=== PATIENT | female | born 2000 | race Caucasian/White ===

== ENCOUNTER 2018-12-05 18:53 | Emergency (ER) | payer OTHER ==
[2018-12-05] MEDS ORDERED: Ondansetron PF 4 MG/2 ML Vial ONE (19:22)
[2018-12-05 19:40] LABS: Alcohol 290 mg/dL (Less than 10); Anion Gap 15 mmol/L (10-20); BUN (Urea Nitrogen) 12 mg/dL (7.0-18.7); Calc. Creatinine Clearance 0 mL/min (70-130); Calcium 7.8 mg/dL (7.8-10.44); Carbon Dioxide 19 mmol/L (22-29); Chloride 108 mmol/L (98-107); Estimated GFR-MDRD 90; Glucose 89 mg/dL (70-105); Potassium 3.8 mmol/L (3.5-5.1)
[2018-12-05 19:41] LABS: #Basophils 0.1 thou/uL (0.0-0.2); #Lymphocytes 1.2 thou/uL (1.20-3.40); #Monocytes 0.2 thou/uL (0.11-0.59); #Neutrophils 3.3 thou/uL (1.40-6.50); %Basophils 1.1 % (0.0-1.0); %Eosinophils 0.4 % (0.0-10.0); %Lymphocytes 25.8 % (28.0-48.0); %Monocytes 4.1 % (0.0-4.0); %Neutrophils 68.7 % (31.0-61.0); Hemoglobin 11.4 g/dL (12.0-16.0); Mean Corpuscular HGB CONC 32.8 g/dL (32.0-36.0); Mean Corpuscular Hemoglobin 29.8 pg (25.0-35.0); Mean Corpuscular Volume 90.8 fL (78.0-98.0); Mean Platelet Volume 7.8 fL (7.4-10.4); Platelet Count 157 thou/uL (130-400); RBC Distribution Width 11.9 % (11.5-14.5); Red Blood Cell (RBC) Count 3.83 mill/uL (4.00-5.20); White Blood Cell (WBC) Count 4.8 thou/uL (4.8-10.8)
[2018-12-05 19:43] LABS: Sodium 138 mmol/L (136-145)
== END 2018-12-05 20:45 | disposition home or self-care (01) ==
LOC: BURERS 18:53
DX: F10.129 Alcohol abuse with intoxication, unspecified (principal)
CPT/HCPCS: 80048; 80307; 85025; 96361; 96374; J2405